=== PATIENT | male | born 1975 | race Native Hawaiian/Other Pacific Islander ===

== ENCOUNTER 2017-05-25 07:33 | Day surgery (SDC) | payer OTHER ==
--- NOTE | 2017-05-18 10:36 | RADIOLOGY REPORT (SQ) ---
EXAM DESCRIPTION: CHEST PA/LATERAL COMPLETED DATE/TIME: 05/18/2017 10:25 am REASON FOR STUDY: PRE OP COMPARISON: None. EXAM PARAMETERS: NUMBER OF VIEWS: two views TECHNIQUE: Digital Frontal and Lateral radiographic views of the chest acquired. RADIATION DOSE: NA LIMITATIONS: none FINDINGS: LUNGS AND PLEURA: No opacities, masses or pneumothorax. No pleural effusion. MEDIASTINUM AND HILAR STRUCTURES: No masses or contour abnormalities. HEART AND VASCULAR STRUCTURES: Heart normal size. No evidence for failure. BONES: No acute findings. HARDWARE: None in the chest. OTHER: No other significant finding. IMPRESSION: NO SIGNIFICANT RADIOGRAPHIC FINDING IN THE CHEST. TECHNICAL DOCUMENTATION: JOB ID: [id number] [employer]- All Rights Reserved
[2017-05-18 10:55] LABS: APPEARANCE,URINE CLEAR; BILIRUBIN,URINE NEGATIVE (NEGATIVE); GLUCOSE, URINE NEGATIVE (NEGATIVE); KETONES,URINE NEGATIVE (NEGATIVE); LEUKOCYTE ESTERASE,URINE NEGATIVE (NEGATIVE); NITRITE,URINE NEGATIVE (NEGATIVE); PROTEIN,URINE NEGATIVE (NEGATIVE); UROBILINOGEN,URINE NEGATIVE mg/dL (<2.0)
[2017-05-18 10:59] LABS: ABSOLUTE EOSINOPHILS # (AUTO) 0.2 10^3/uL (0.0-0.6); ABSOLUTE LYMPHOCYTES (AUTO) 1.8 10^3/uL (0.5-4.7); ABSOLUTE MONOCYTES (AUTO) 0.7 10^3/uL (0.1-1.4); ABSOLUTE NEUT (AUTO) 4.4 10^3/uL (1.7-8.2); BASOPHILS % (AUTO) 0.5 % (0-2); EOSINOPHILS % (AUTO) 3.3 % (0-6); HEMATOCRIT 45.4 % (37.9-51.0); HEMOGLOBIN 15.7 g/dL (13.5-17.0); HGB HCT DIFFERENCE 1.7; LYMPHOCYTES % (AUTO) 25.1 % (13-45); MEAN CORPUSCULAR HEMOGLOBIN 29.5 pg (27.0-33.4); MEAN CORPUSCULAR HGB CONC 34.5 g/dL (32.0-36.0); MEAN CORPUSCULAR VOLUME 86 fl (80-97); MONOCYTES % (AUTO) 9.7 % (3-13); RED CELL DISTRIBUTION WIDTH 14.1 % (11.5-14.0); SEGMENTED NEUTROPHILS % (AUTO) 61.4 % (42-78); WHITE BLOOD COUNT 7.1 10^3/uL (4.0-10.5)
[2017-05-18 11:55] LABS: ANION GAP 14 (5-19); BLOOD UREA NITROGEN 15 mg/dL (7-20); CALCIUM 9.5 mg/dL (8.4-10.2); CARBON DIOXIDE 26 mmol/L (22-30); CHLORIDE 104 mmol/L (98-107); CREATININE RESULT 1.03 mg/dL (0.52-1.25); GLUCOSE 94 mg/dL (75-110); POTASSIUM 4.4 mmol/L (3.6-5.0)
--- NOTE | 2017-05-18 13:54 | EKG REPORT ---
SEVERITY:- NORMAL ECG - SINUS RHYTHM : Confirmed by: Nathaly Benz 18-May-2017 13:53:59
[~2017-05-25 07:33] MED LIST: CEFAZOLIN 2 GM/D5W RTU 2 GM/50 ML RTUPB IV PRN; LACTATED RINGERS 1000 ML IV PRN; LIDOCAINE 0.5% INJ-PF (5 MG/ML) 50 ML SDV SUBCUT PRN
[2017-05-25] MEDS ORDERED: BUPIVACAINE HCL 0.5%-EPI 1:200000 INJ/PF 30 ML VIAL ONE (08:31)
[2017-05-25] MEDS ORDERED: LIDOCAINE 1% INJ-PF (10 MG/ML) 30 ML SDV ONE (08:31)
[2017-05-25] MEDS ORDERED: MIDAZOLAM 2 MG/2 ML INJ ONE (08:53)
[2017-05-25] MEDS ORDERED: PROPOFOL INJ 200 MG/20 ML VIAL IV ONE (08:53)
[2017-05-25] MEDS ORDERED: FENTANYL CITRATE INJ/PF 100 MCG/2 ML AMPUL ONE (08:53)
[2017-05-25] MEDS ORDERED: ACETAMINOPHEN 100 ML IV ONE (08:53)
[2017-05-25] MEDS ORDERED: MORPHINE SULFATE 10 MG/ML INJ IV PRN (09:45)
[2017-05-25] MEDS ORDERED: PROMETHAZINE HCL INJ 25 MG/1 ML VIAL IV PRN ×2 (09:45)
[2017-05-25] MEDS ORDERED: OXYCODONE-ACETAMINOPHEN 5-325 MG TABLET PO PRN ×2 (09:45)
[2017-05-25] MEDS ORDERED: FENTANYL CITRATE INJ/PF 100 MCG/2 ML AMPUL IV PRN ×3 (09:45)
[2017-05-25] MEDS ORDERED: MEPERIDINE HCL/PF INJ 25 MG/1 ML DISP.SYRIN IV PRN (09:45)
[2017-05-25] MEDS ORDERED: DIPHENHYDRAMINE HCL 50 MG/ML VIAL IV PRN (09:45)
--- NOTE | 2017-05-25 09:52 | Operative Report ---
Operative Report DATE OF SURGERY: 05/25/17 PREOPERATIVE DIAGNOSIS: Right lateral meniscal tear POSTOPERATIVE DIAGNOSIS: Bucket-handle tear right lateral meniscus. 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 Intact ACL. Grade 1-2 chondral malacia medial compartment. Intact medial meniscus. 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 The knee is insufflated Marcaine, Xylocaine, and epinephrine through medial lateral infrapatellar portals. Subsequent medial lateral patella portals are created for the introduction of arthroscope and debridements mutation. Joint is examined in systematic fashion findings as above. Using combination of scissors, grabbers, mechanical shaver, and electric frequency ablation probable partial lateral meniscectomy was performed from approximately 12:00 to 7:00 on the face of the dial. This is extensive and extends out at least to the peripheral one third. An abrasion chondroplasty of the patellofemoral compartment is performed using a mechanical shaver. At this point the joint is again examined in systematic fashion findings as above. The instrumentation was removed. Portals closed with interrupted nylon. A sterile compressive dressing was applied. The patient was returned to PACU in satisfactory condition.
[2017-05-25] MEDS ORDERED: ONDANSETRON 4 MG TAB.RAPDIS SL PRN (10:29)
[2017-05-25] MEDS ORDERED: OXYCODONE HCL IR 5 MG TABLET PO PRN (10:29)
[2017-05-25 13:29] VITALS: BP 134/89
== END 2017-05-25 12:58 | disposition home or self-care (01) ==
LOC: OROUT 07:33
PROVIDERS: ATTEND Orthopaedic Surgery
PROC: 0SBC4ZZ Excision of Right Knee Joint, Percutaneous Endoscopic Approach (ICD-10-PCS; principal; 2017-05-25 09:30)
DX: S83.251A Bucket-handle tear of lateral meniscus, current injury, right knee, initial encounter (principal); X58.XXXA Exposure to other specified factors, initial encounter; M22.41 Chondromalacia patellae, right knee; M25.561 Pain in right knee; Z87.891 Personal history of nicotine dependence
CPT/HCPCS: 93005; 36415; 85025; 80048; 81001; 71020; 93010; 29881; J2250; J3490 ×2; J3010; J2704; J0690; J0131; 1400

== ENCOUNTER 2018-10-30 22:38 | Emergency (ER) | payer OTHER ==
[2018-10-30] MEDS ORDERED: DIPH/PERTUSS(ACELL)/TETANUS VAC/PF 0.5 ML SYR (>=10YO) IM ONE (22:56)
--- NOTE | 2018-10-31 00:22 | ER Document Report ---
ED Wound - General Chief Complaint: Laceration Stated Complaint: RIGHT EYE PAIN Time Seen by Provider: 10/30/18 23:51 Primary Care Provider: MICHAEL DIEHL MD [Primary Care Provider] - Follow up as needed Mode of Arrival: Ambulatory Information source: Patient TRAVEL OUTSIDE OF THE [place] IN LAST 30 DAYS: No - HPI Patient complains to provider of: Laceration Notes: Patient here with injury to the right eyebrow. He states he was moving some boxes around in his garage when he excellently hit his right eyebrow on the corner of his squat bar. He states there was some rust on this area. He was concerned because his tetanus is not up-to-date and he wanted to come get that evaluated. He denies any severe pain. No blurred or loss vision. No loss of consciousness. Is not on blood thinning medications. He denies any active bleeding. No redness or drainage. No fevers. No nausea, vomiting, diarrhea. He denies any other injuries or complaints at this time. - Related Data Allergies/Adverse Reactions: No Known Allergies Allergy (Unverified 05/18/17 09:11) Past Medical History - Social History Smoking Status: Former Smoker Chew tobacco use (# tins/day): No Frequency of alcohol use: None Drug Abuse: None Family History: Reviewed & Not Pertinent Patient has suicidal ideation: No Patient has homicidal ideation: No - Past Medical History Cardiac Medical History: Denies: Hx Coronary Artery Disease, Hx Heart Attack, Hx Hypertension Pulmonary Medical History: Reports: Hx Pneumonia - BABY Denies: Hx Asthma, Hx Bronchitis, Hx COPD Neurological Medical History: Denies: Hx Cerebrovascular Accident, Hx Seizures Renal/ Medical History: Denies: Hx Peritoneal Dialysis Musculoskeletal Medical History: Reports Hx Arthritis - KNEES Past Surgical History: Reports: Hx Orthopedic Surgery - right knee scope - Immunizations Hx Diphtheria, Pertussis, Tetanus Vaccination: Yes Review of Systems - Review of Systems -: Yes All other systems reviewed and negative Physical Exam - Vital signs Vitals: Temp Pulse Resp BP Pulse Ox 98.2 F 58 L 16 119/69 97 10/30/18 22:48 10/30/18 22:48 10/30/18 22:48 10/30/18 22:48 10/30/18 22:48 - Notes Notes: GENERAL: alert, cooperative, nontoxic, no distress. HEAD: normocephalic, EYES: conjunctiva pink without discharge, no external redness or swelling. Pupils are equal, round, reactive to light. Extraocular muscles are intact bilaterally. EARS: no external swelling, no external redness NOSE: atraumatic, no external swelling MOUTH/THROAT: mucous membranes moist and pink, posterior pharynx without erythema, swelling, exudate. No trismus or drooling. NECK: soft, supple, full range of motion, no meningismus. CHEST: no distress, lungs clear and equal throughout. No wheezing, rales, rhonchi. CARDIAC: regular rate and rhythm, no murmur, normal capillary refill, normal pulses. No peripheral edema noted. BACK: full range of motion, no CVA tenderness. EXTREMITIES: full range of motion of all extremities. No redness, no swelling. NEURO: alert and oriented x 3, cranial nerves II through XII are grossly intact. Upper and lower extremities are equal throughout. Normal sensation. No focal deficits, full range of motion of all extremities. normal finger to nose. PYSCH: appropriate mood, affect. Patient is cooperative. SKIN: pink, warm, dry, no rash. 1 cm laceration to the lateral aspect of the right eyebrow. No active bleeding. This is superficial and well approximated at this time. No significant tenderness to palpation. No crepitus. Course - Re-evaluation Re-evalutation: 10/31/18 00:19 Patient is nontoxic-appearing with stable vitals. Patient here with complaints of laceration of the right eyebrow. He is moving some boxes in his garage when he excellently hit his eye on his squat bar which is somewhat jacki. He is concerned because he is not sure when his last tetanus was. He denies any other injuries. He has a nonfocal neurological exam with no other signs of traumatic injury. Laceration is nonbleeding, well approximated and not deep. At this point I believe glue would be fine to keep the wound approximated. No signs of infection or orbital fracture. No sign of extract muscle entrapment. The patient's emergency department workup and current diagnosis were explained to the patient and or family. Follow-up instructions were provided. Medications if prescribed were discussed. Instructions for when to return to the emergency department including specific worrisome symptoms were discussed with the patient and/or family. - Vital Signs Vital signs: Temp Pulse Resp BP Pulse Ox 98.2 F 58 L 16 119/69 97 10/30/18 22:48 10/30/18 22:48 10/30/18 22:48 10/30/18 22:48 10/30/18 22:48 Procedures - Laceration/Wound Repair RIGHT EYEBROW Wound length (cm): 1 Wound's Depth, Shape: Superficial, Linear Laceration pre-procedure: Shur-Clens applied Wound explored: Clean, No foreign body removed Wound Repaired With: Dermabond Layer Closure?: No Post-procedure wound care: Sterile dressing applied Post-procedure NV exam normal: Yes Complications: No Discharge - Discharge Clinical Impression: Laceration of eyebrow, right Qualifiers: Encounter type: initial encounter Qualified Code(s): S01.111A - Laceration without foreign body of right eyelid and periocular area, initial encounter Condition: Stable Disposition: HOME, SELF-CARE Instructions: Tetanus Immunization Given ([facility]), Skin Adhesive Closure ([facility]) Additional Instructions: Keep wound clean and dry. Do not apply Neosporin or other petroleum-based ointment on this area. Follow-up for increased pain, fever, redness, drainage, severe headache, blurred or loss vision, persistent vomiting, or for any further concerns. Referrals: MICHAEL DIEHL MD [Primary Care Provider] - Follow up as needed
[2018-10-31 00:32] VITALS: BP 152/74
== END 2018-10-31 00:37 | disposition home or self-care (01) ==
LOC: ER 22:38
DX: S01.111A Laceration without foreign body of right eyelid and periocular area, initial encounter (principal); W21.89XA Striking against or struck by other sports equipment, initial encounter; Y93.89 Activity, other specified; Z87.891 Personal history of nicotine dependence
CPT/HCPCS: 90471; 90715; 99282